=== PATIENT | male | born 1950 | race Caucasian/White ===

== ENCOUNTER 2017-11-10 21:11 | Emergency (ER) | payer OTHER ==
[2017-11-10] MEDS ORDERED: TETANUS & DIPHTHERIA TOX,ADULT 0.5 ML VIAL ONE (22:04)
[2017-11-10] MEDS ORDERED: HYDROCODONE/APAP 5/325 MG TAB ONE (22:29)
--- NOTE | 2017-11-10 23:11 | ER ---
Nurse's Notes [facility] Name: Anjel Leone Age: 67 yrs Sex: Male : 1950 Arrival Date: 11/10/2017 Time: 21:14 Bed 4 Private MD: Lashaun Burger F Diagnosis: Puncture wound without foreign body, right foot Presentation: 11/10 21:45 Presenting complaint: Patient states: stepped on alejandra screw yesterday about noon, tl3 started swelling last night. Transition of care: patient was not received from another setting of care. Onset of symptoms was November 10, 2017. Risk Assessment: Do you want to hurt yourself or someone else? Patient reports no desire to harm self or others. Initial Sepsis Screen: Does the patient meet any 2 criteria? No. Patient's initial sepsis screen is negative. Does the patient have a suspected source of infection? No. Patient's initial sepsis screen is negative. Care prior to arrival: None. 21:45 Method Of Arrival: Ambulatory tl3 21:45 Acuity: MCKAY 4 tl3 Triage Assessment: 21:49 General: Appears uncomfortable, Behavior is cooperative, appropriate for age. tl3 23:39 Pain: Complains of pain in left foot and left leg. ao Historical: - Allergies: 21:49 No Known Allergies; tl3 - Home Meds: 21:49 metoprolol succinate 50 mg oral Tb24 [Active]; amoxicillin 500 mg Oral cap 3 times per tl3 day [Active]; amlodipine 5 mg tab 1 tab once daily [Active]; Pravachol 40 mg Oral tab 1 tab once daily [Active]; hydrocodone-acetaminophen 7.5-325 mg Oral tab every 4-6 hours [Active]; - Immunization history:: Adult Immunizations up to date. - Social history:: Smoking status: Patient/guardian denies using tobacco, never smoked. - Ebola Screening: : Patient denies travel to an Ebola-affected area in the 21 days before illness onset. Screenin:37 Abuse screen: Denies threats or abuse. Denies injuries from another. Nutritional rv screening: No deficits noted. Tuberculosis screening: No symptoms or risk factors identified. Fall Risk None identified. Assessment: 22:45 General: Appears in no apparent distress. uncomfortable, Behavior is calm, cooperative, ao appropriate for age. Pain: Complains of pain in left foot. Neuro: Level of Consciousness is awake, alert, obeys commands, Oriented to person, place, time, situation, Appropriate for age Moves all extremities. Speech is normal, Facial symmetry appears normal. Cardiovascular: Capillary refill < 3 seconds Patient's skin is warm and dry. Respiratory: Airway is patent Respiratory effort is even, unlabored, Respiratory pattern is regular. GI: Abdomen is non-distended. : No signs and/or symptoms were reported regarding the genitourinary system. EENT: No signs and/or symptoms were reported regarding the EENT system. Derm: Skin is clammy, Skin is pink, warm \T\ dry. Skin temperature is warm Wound noted left foot Wound is Clean. Musculoskeletal: Range of motion: intact in all extremities. Vital Signs: 21:49 BP 121 / 76; Pulse 59; Resp 18; Temp 98.4; Pulse Ox 96% ; Weight 110.68 kg; Height 6 tl3 ft. (182.88 cm); 21:49 Body Mass Index 33.09 (110.68 kg, 182.88 cm) tl3 ED Course: 21:14 Patient arrived in ED. es 21:15 Lashaun Burger MD is Private Physician. es 21:45 Nathaniel Mcclain, DONNA is Primary Nurse. ao 21:46 Triage completed. tl3 21:49 Ishmael Ash NP is PHCP. pm1 21:49 Emery Andrade MD is Attending Physician. pm1 21:49 Arm band placed on right wrist. tl3 22:14 X-ray completed. Portable x-ray completed in exam room. Patient tolerated procedure mh1 well. 22:16 Foot Right 3 View XRAY In Process Unspecified. EDMS 23:08 Lashaun Burger MD is Referral Physician. pm1 23:38 No provider procedures requiring assistance completed. Patient did not have IV access ao during this emergency room visit. 23:39 Patient has correct armband on for positive identification. Pulse ox on. NIBP on. ao Administered Medications: 22:05 Drug: Tetanus-Diphtheria Toxoid Adult 0.5 ml {Nuisance Wildlife Specialist: WISETIVI. Exp: ao 02/08/2020. Lot #: [id number]. } Route: IM; Site: left deltoid; 23:37 Follow up: Response: No adverse reaction rv 22:30 Drug: [place] 5 mg-325 mg 1 tabs Route: PO; ao 23:37 Follow up: Response: No adverse reaction rv 23:36 Drug: Cipro 500 mg Route: PO; rv 23:37 Follow up: Response: Medication administered at discharge. rv Outcome: 23:10 Discharge ordered by . pm1 23:39 Discharged to home ambulatory. ao 23:39 Condition: good 23:39 Discharge instructions given to patient, Instructed on discharge instructions, follow up and referral plans. Demonstrated understanding of instructions, follow-up care, medications, Prescriptions given X 2. 23:42 Patient left the ED. ao Signatures: Dispatcher [employer] Lisa Lofton Martha 1 Nathaniel Mcclain, RN RN ao Ishmael Ash, SUE SHIPS OR BARGES LOADER pm1 Carmen Hines RN RN tl3 Edison Byers RN RN rv
--- NOTE | 2017-11-10 23:11 | EDPHYS ---
Physician Documentation [facility] Name: Anjel Leone Age: 67 yrs Sex: Male : 1950 Arrival Date: 11/10/2017 Time: 21:14 Bed 4 Private MD: Lashaun Burger F ED Physician Emery Andrade HPI: 11/11 00:00 This 67 yrs old Male presents to ER via Ambulatory with complaints of NAIL pm1 PUNCTURE RT FOOT. 00:00 Onset: The symptoms/episode began/occurred just prior to arrival. Patient wearing pm1 tennis shoes and accidentally stepped on board that had a nail/screw sticking out. Puncture wound to his right foot. 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 Historical: - Allergies: 11/10 21:49 No Known Allergies; tl3 - Home Meds: 21:49 metoprolol succinate 50 mg oral Tb24 [Active]; amoxicillin 500 mg Oral cap 3 times per tl3 day [Active]; amlodipine 5 mg tab 1 tab once daily [Active]; Pravachol 40 mg Oral tab 1 tab once daily [Active]; hydrocodone-acetaminophen 7.5-325 mg Oral tab every 4-6 hours [Active]; - Immunization history:: Adult Immunizations up to date. - Social history:: Smoking status: Patient/guardian denies using tobacco, never smoked. - Ebola Screening: : Patient denies travel to an Ebola-affected area in the 21 days before illness onset. ROS: 11/11 00:00 Constitutional: Negative for fever, chills, and weight loss, Eyes: Negative for injury, pm1 pain, redness, and discharge, ENT: Negative for injury, pain, and discharge, Neck: Negative for injury, pain, and swelling, Cardiovascular: Negative for chest pain, palpitations, and edema, Respiratory: Negative for shortness of breath, cough, wheezing, and pleuritic chest pain, Abdomen/GI: Negative for abdominal pain, nausea, vomiting, diarrhea, and constipation, Back: Negative for injury and pain, MS/Extremity: Negative for injury and deformity. Skin: Positive for puncture, of the ball of right foot. Exam: 00:00 Constitutional: This is a well developed, well nourished patient who is awake, alert, pm1 and in no acute distress. Head/Face: Normocephalic, atraumatic. Chest/axilla: Normal chest wall appearance and motion. Nontender with no deformity. No lesions are appreciated. Cardiovascular: Regular rate and rhythm with a normal S1 and S2. No gallops, murmurs, or rubs. Normal PMI, no JVD. No pulse deficits. Respiratory: Lungs have equal breath sounds bilaterally, clear to auscultation and percussion. No rales, rhonchi or wheezes noted. No increased work of breathing, no retractions or nasal flaring. Back: No spinal tenderness. No costovertebral tenderness. Full range of motion. 00:00 Skin: Appearance: normal except for affected area, injury, puncture(s), of the ball of right foot. Vital Signs: 11/10 21:49 BP 121 / 76; Pulse 59; Resp 18; Temp 98.4; Pulse Ox 96% ; Weight 110.68 kg; Height 6 tl3 ft. (182.88 cm); 21:49 Body Mass Index 33.09 (110.68 kg, 182.88 cm) tl3 MDM: 22:01 Patient medically screened. pm1 23:08 Data reviewed: vital signs. Data interpreted: Pulse oximetry: on room air is 96 %. pm1 Interpretation: normal. Counseling: I had a detailed discussion with the patient and/or guardian regarding: the historical points, exam findings, and any diagnostic results supporting the discharge/admit diagnosis, radiology results, the need for outpatient follow up, to return to the emergency department if symptoms worsen or persist or if there are any questions or concerns that arise at home. 11/11 00:00 Special discussion: I discussed in detail with the patient the higher chance of wound pm1 infection based on his presenting history. 11/10 21:51 Order name: Foot Right 3 View XRAY bp Administered Medications: 11/10 22:05 Drug: Tetanus-Diphtheria Toxoid Adult 0.5 ml {Office Machine Service Supervisor: Gamida Cell. Exp: ao 02/08/2020. Lot #: [id number]. } Route: IM; Site: left deltoid; 23:37 Follow up: Response: No adverse reaction rv 22:30 Drug: [place] 5 mg-325 mg 1 tabs Route: PO; ao 23:37 Follow up: Response: No adverse reaction rv 23:36 Drug: Cipro 500 mg Route: PO; rv 23:37 Follow up: Response: Medication administered at discharge. rv Disposition: 11/11 04:33 Co-signature as Attending Physician, Emery Andrade MD I agree with the assessment and tw4 plan of care. Disposition: 11/10/17 23:10 Discharged to Home. Impression: Puncture wound without foreign body, right foot. - Condition is Stable. - Discharge Instructions: Puncture Wound. - Prescriptions for Tylenol- Codeine #3 300-30 mg Oral Tablet - take 2 tablets by ORAL route every 6 hours As needed; 20 tablet. Cipro 500 mg Oral Tablet - take 1 tablet by ORAL route every 12 hours for 7 days; 14 tablet. - Medication Reconciliation Form, Thank You Letter, Antibiotic Education, Prescription Opioid Use form. - Follow up: Emergency Department; When: As needed; Reason: Worsening of condition. Follow up: Lashaun Burger MD; When: 2 - 3 days; Reason: Recheck today's complaints, Continuance of care, Re-evaluation by your physician. - Problem is new. - Symptoms have improved. Signatures: Dispatcher [employer] EDNathaniel Bain, RN RN ao Ishmael Ash, SUE WATER TREATMENT TECHNICIAN pm1 Adam Gonzales RN RN bp Emery Andrade MD MD tw4 Carmen Hines RN RN tl3 Edison Byers RN RN rv Corrections: (The following items were deleted from the chart) 11/10 23:42 23:10 11/10/2017 23:10 Discharged to Home. Impression: Puncture wound without foreign ao body, right foot. Condition is Stable. Forms are Medication Reconciliation Form, Thank You Letter, Antibiotic Education, Prescription Opioid Use. Follow up: Emergency Department; When: As needed; Reason: Worsening of condition. Follow up: Lashaun Burger; When: 2 - 3 days; Reason: Recheck today's complaints, Continuance of care, Re-evaluation by your physician. Problem is new. Symptoms have improved. pm1
[2017-11-10] MEDS ORDERED: CIPROFLOXACIN HCL 500 MG TAB ONE (23:30)
--- NOTE | 2017-11-11 10:32 | RAD REPORT ---
EXAM DESCRIPTION: RAD - Foot Right 3 View - 11/10/2017 10:19 pm CLINICAL HISTORY: Right foot pain status post injury FINDINGS: No fracture or dislocation is seen. Diffuse edema is present within the subcutaneous tissu es. No bony destructive lesion is noted
== END 2017-11-10 23:42 | disposition home or self-care (01) ==
LOC: ER 21:11
DX: S91.331A Puncture wound without foreign body, right foot, initial encounter (principal); W22.8XXA Striking against or struck by other objects, initial encounter; Y93.9 Activity, unspecified; Y92.019 Unspecified place in single-family (private) house as the place of occurrence of the external cause; Z23 Encounter for immunization
CPT/HCPCS: 90714; 99284

== ENCOUNTER 2021-07-15 14:20 | Inpatient (IN) | payer OTHER ==
--- OUTSIDE RECORDS SUMMARY | 2021-07-15 14:23 | XMS REPORT | Continuity of Care Document ---
:1950 Author Organization [facility] t Address [address] [place] [address] Care Team Providers Name Role Phone XI Attending Clinician Unavailable IMELDA Attending Clinician Unavailable Problems This patient has no known problems. Allergies, Adverse Reactions, Alerts This patient has no known allergies or adverse reactions. Medications This patient has no known medications. Procedures This patient has no known procedures. Encounters Start End Encounter Admission Attending Care Care Encounter Source Date/Time Date/Time Type Type Clinicians Facility Department ID 2021-07-04 2021-07-04 Outpatient MARTA LAYNE [facility] [id number] [place] 00:00:00 00:00:[address] 2021-07-04 2021-07-04 Outpatient MARTA LAYNE [facility] [id number] [place] 00:00:00 00:00:[address] 2021-06-29 2021-06-29 Outpatient IMELDAON [facility] [id number] [place] 00:00:00 00:00:00 [facility] [address] Results This patient has no known results.
[2021-07-15] MEDS ORDERED: IBUPROFEN 400 MG TAB ONE (14:43)
--- NOTE | 2021-07-15 15:43 | RAD REPORT ---
EXAM DESCRIPTION: RAD - Chest Single View - 07/15/2021 3:33 pm CLINICAL HISTORY: Congestion;Cough Chest pain. COMPARISON: Chest Single View dated 11/04/2015 FINDINGS: Portable technique limits examination quality. Interstitial markings are slightly prominent suggesting a mild viral infection or bronchitis. The hea rt is normal in size. No displaced fractures.
[2021-07-15 15:46] LABS: Absolute Lymphocytes (CBC) 0.3 K/uL (0.7-4.9); Hematocrit 28.6 % (39.6-49.0); Lymphocytes % 5.5 % (15.3-44.8); RBC Red Blood Cell Count 2.99 M/uL (4.33-5.43)
[2021-07-15 15:52] LABS: Protime INR 1.15
[2021-07-15 16:19] LABS: Bilirubin Direct 0.2 mg/dL (0-0.2); Bilirubin Total 0.5 mg/dL (0.2-1.0); CKMB Creatine Kinase MB 5.2 ng/mL (1.0-3.6); Potassium 4.7 mmol/L (3.5-5.1); Protein, Total 7.3 g/dL (6.4-8.2); Troponin High Sensitivity 2219.9 pg/mL (<58.9)
[2021-07-15] MEDS ORDERED: ACETAMINOPHEN 500 MG TAB ONE (16:23)
[2021-07-15 17:50] LABS: Urine Blood Negative (Negative); Urine Glucose Negative (Negative); Urine Protein 2+ (Negative); Urine pH 5.5 (5.0-7.0)
[2021-07-15 18:14] LABS: SARS-COV-2 RT PCR NEGATIVE (NEGATIVE)
[2021-07-15 18:30] LABS: Urine Bacteria <20 /HPF (NONE SEEN); Urine RBC NONE SEEN /HPF (NONE SEEN)
--- NOTE | 2021-07-15 19:03 | EDPHYS ---
Physician Documentation [facility] Name: Anjel Leone Age: 71 yrs Sex: Male : 1950 Arrival Date: 07/15/2021 Time: 14:22 Bed 4 Private MD: Lashaun Burger F ED Physician Elia Keyes HPI: 07/15 19:03 This 71 yrs old Male presents to ER via Ambulatory with complaints of Fever, kdr Nausea/Vomiting, Shortness Of Breath. 19:03 The patient reports fever, that was measured at 102 degrees Fahrenheit. Onset: The kdr symptoms/episode began/occurred 2 day(s) ago, The patient has had intermittent fevers for the past several days. Severity of symptoms: At their worst the symptoms were mild moderate just prior to arrival, in the emergency department the symptoms have improved Patient spiked a fever again in the ED. The patient has not experienced similar symptoms in the past. The patient is being followed by a lens engraver in [place] who is planning to put in a AV fistula to begin dialysis in the next few weeks. Historical: - Allergies: 14:34 No Known Allergies; jl7 - Home Meds: 14:35 pravastatin 40 mg oral tab 1 tab once daily [Active]; metoprolol succinate 50 mg Oral jl7 Tb24 [Active]; hydralazine 50 mg Oral tab [Active]; amlodipine 5 mg tab 1 tab once daily [Active]; - PMHx: 14:34 Hypertensive disorder; GERD; Hypercholesterolemia; jl7 - Immunization history:: Client reports receiving the 2nd dose of the Covid vaccine, Moderna. - Social history:: Smoking status: Patient denies any tobacco usage or history of. ROS: 19:05 Constitutional: Negative for fever, chills, and weight loss, Eyes: Negative for injury, kdr pain, redness, and discharge, Neck: Negative for injury, pain, and swelling, Cardiovascular: Negative for chest pain, palpitations, and edema, Back: Negative for injury and pain, : Negative for injury, bleeding, discharge, and swelling, MS/Extremity: Negative for injury and deformity, Skin: Negative for injury, rash, and discoloration, Neuro: Negative for headache, weakness, numbness, tingling, and seizure activity. Psych: Negative for depression, anxiety, suicide ideation, homicidal ideation, and hallucinations, Allergy/Immunology: Negative for hives, rash, and allergies, Endocrine: Negative for neck swelling, polydipsia, polyuria, polyphagia, and marked weight changes, Hematologic/Lymphatic: Negative for swollen nodes, abnormal bleeding, and unusual bruising. 19:05 Respiratory: Positive for dyspnea on exertion, shortness of breath, at rest. Negative for hemoptysis, orthopnea, sputum production. Exam: 19:07 Constitutional: This is a well developed, well nourished patient who is awake, alert, kdr and in no acute distress. Head/Face: Normocephalic, atraumatic. Eyes: Pupils equal round and reactive to light, extra-ocular motions intact. Lids and lashes normal. Conjunctiva and sclera are non-icteric and not injected. Cornea within normal limits. Periorbital areas with no swelling, redness, or edema. Neck: Trachea midline, no thyromegaly or masses palpated, and no cervical lymphadenopathy. Supple, full range of motion without nuchal rigidity, or vertebral point tenderness. No Meningismus. Chest/axilla: Normal chest wall appearance and motion. Nontender with no deformity. No lesions are appreciated. Cardiovascular: Regular rate and rhythm with a normal S1 and S2. No gallops, murmurs, or rubs. Normal PMI, no JVD. No pulse deficits. Abdomen/GI: Soft, non-tender, with normal bowel sounds. No distension or tympany. No guarding or rebound. No evidence of tenderness throughout. Back: No spinal tenderness. No costovertebral tenderness. Full range of motion. Skin: Warm, dry with normal turgor. Normal color with no rashes, no lesions, and no evidence of cellulitis. MS/ Extremity: Pulses equal, no cyanosis. Neurovascular intact. Full, normal range of motion. Neuro: Awake and alert, GCS 15, oriented to person, place, time, and situation. Cranial nerves II-XII grossly intact. Motor strength 5/5 in all extremities. Sensory grossly intact. Cerebellar exam normal. Normal gait. Psych: Awake, alert, with orientation to person, place and time. Behavior, mood, and affect are within normal limits. 19:07 Respiratory: the patient does not display signs of respiratory distress, Respirations: normal, Breath sounds: rales, that are mild, are located in both bases, are heard diffusely. Vital Signs: 14:31 BP 147 / 80; Pulse 106; Resp 23 S; Temp 100.7(O); Pulse Ox 92% on R/A; Weight 108.86 jl7 kg; Height 6 ft. 0 in. (182.88 cm); Pain 0/10; 16:05 BP 115 / 70; Pulse 91; Resp 20; Temp 101.1(O); Pulse Ox 94% on R/A; ph 17:06 BP 111 / 74; Pulse 84; Resp 20; Pulse Ox 87% on BiPAP; ph 17:42 Temp 99.1(O); ph 18:39 BP 110 / 71; Pulse 79; Resp 18; Pulse Ox 97% on R/A; ph 19:31 BP 114 / 74; Pulse 81; Resp 18; Pulse Ox 97% ; tw5 19:31 Temp 98.8(O); tw5 14:31 Body Mass Index 32.55 (108.86 kg, 182.88 cm) jl7 MDM: 19:02 Patient medically screened. kdr 19:07 Data reviewed: vital signs, nurses notes, lab test result(s), radiologic studies. kdr Counseling: I had a detailed discussion with the patient and/or guardian regarding: the historical points, exam findings, and any diagnostic results supporting the discharge/admit diagnosis, lab results, radiology results, the need for further work-up and treatment in the hospital. 07/15 15:10 Order name: Amylase, Serum kdr 07/15 15:10 Order name: Basic Metabolic Panel kdr 07/15 15:10 Order name: Blood Culture Adult (2) kdr 07/15 15:10 Order name: CBC with Diff kdr 07/15 15:10 Order name: CPK kdr 07/15 15:10 Order name: Ckmb; Complete Time: 17:03 kdr 07/15 15:10 Order name: LFT's; Complete Time: 17:03 kdr 07/15 15:10 Order name: Lactate; Complete Time: 17:03 kdr 07/15 15:10 Order name: Lipase; Complete Time: 17:03 kdr 07/15 15:10 Order name: Procalcitonin; Complete Time: 17:03 kdr 07/15 15:10 Order name: Protime (+inr); Complete Time: 16:00 kdr 07/15 15:10 Order name: Ptt, Activated; Complete Time: 16:00 kdr 07/15 15:10 Order name: Troponin HS; Complete Time: 17:03 kdr 07/15 15:10 Order name: Urine Microscopic Only; Complete Time: 18:57 kdr 07/15 15:11 Order name: Amylase; Complete Time: 17:03 EDMS 07/15 15:11 Order name: Basic Metabolic Panel; Complete Time: 17:03 EDMS 07/15 15:11 Order name: Blood Culture EDMS 07/15 15:11 Order name: CBC with Automated Diff; Complete Time: 20:09 EDMS 07/15 15:11 Order name: Creatine Phosphokinase; Complete Time: 17:03 EDMS 07/15 16:02 Order name: COVID-19/FLU A+B (Document "Date of Onset" if Symptomatic); Complete Time: ph 18:16 07/15 17:49 Order name: Urine Dipstick-Ancillary; Complete Time: 18:12 EDMS 07/15 19:46 Order name: CBC Smear Scan; Complete Time: 20:09 EDMS 07/15 23:33 Order name: Troponin High Sensitivity EDMS 07/15 23:41 Order name: T4 Free EDMS 07/15 23:41 Order name: Thyroid Stimulating Hormone EDMS 07/16 04:19 Order name: CBC with Automated Diff EDMS 07/16 05:27 Order name: Comprehensive Metabolic Panel EDMS 07/16 05:27 Order name: Troponin High Sensitivity EDMS 07/15 15:10 Order name: Chest Single View XRAY; Complete Time: 16:00 [facility] 07/15 15:10 Order name: Accucheck; Complete Time: 16:16 kdr 07/15 15:10 Order name: Cardiac monitoring; Complete Time: 16:16 kdr 07/15 15:10 Order name: EKG - Nurse/Tech; Complete Time: 18:39 kdr 07/15 15:10 Order name: IV Saline Lock - Large Bore; Complete Time: 16:16 kdr 07/15 15:10 Order name: Labs collected and sent; Complete Time: 16:16 kdr 07/15 15:10 Order name: O2 Per Protocol; Complete Time: 16:16 kdr 07/15 15:10 Order name: O2 Sat Monitoring; Complete Time: 16:16 kdr 07/15 15:10 Order name: Urine Dipstick-Ancillary (obtain specimen); Complete Time: 18:11 kdr 07/15 19:32 Order name: CT Chest Abdomen Pelvis W/O Contrast; Complete Time: 20:09 la1 07/16 05:27 Order name: Lipid Profile EDMS Administered Medications: 14:43 Drug: Motrin (ibuprofen) 800 mg Route: PO; jl7 16:13 Follow up: Response: No adverse reaction ll1 16:20 Drug: Tylenol 1000 mg Route: PO; ph 18:38 Follow up: Response: No adverse reaction; Temperature is decreased ph 18:39 Not Given (Physician Discretion): NS 0.9% (30 ml/kg) 30 ml/kg IV at bolus once; Sepsis ph Protocol 19:39 Drug: Aspirin Chewable Tablet 324 mg Route: PO; tw5 Disposition Summary: 07/15/21 19:03 Hospitalization Ordered Hospitalization Status: Inpatient Admission kdr Condition: Fair kdr Problem: new kdr Symptoms: have improved kdr Bed/Room Type: Standard kdr Provider: Prince Sue(07/15/21 19:08) kdr Location: Telemetry/MedSurg (Inpatient)(07/16/21 13:46) ja1 Room Assignment: 223(07/16/21 13:46) ja Diagnosis - Fever, unspecified kdr - Viral infection, unspecified kdr - Nausea with vomiting, unspecified kdr - End stage renal disease kdr - Subsequent non-ST elevation (NSTEMI) myocardial infarction kdr Forms: - Medication Reconciliation Form kdr - SBAR form kdr Signatures: Dispatcher [employer] EDMS Elia Keyes MD MD kdr Kenny Paris, CONCAVER-C CONCAVER-Cla1 Elle Urias RN RN Ada Olivier, RN RN Mp Giles RN RN jl7 Prem Corona RN RN ja1 Govind Rodriguez, RN RN Micaela Bishop tw5 Corrections: (The following items were deleted from the chart) 19:08 19:03 Lashaun Burger kdr kdr 20:18 19:03 Telemetry/MedSurg (Inpatient) kdr cg 20:18 19:03 kdr 07/16 13:46 [id number] 20:18 [facility] ER HOLD cg ja 07/16 13:46 04 20:18 ERHOLD- cg ja1
--- NOTE | 2021-07-15 19:03 | ER ---
Nurse's Notes [facility] Name: Anjel Leone Age: 71 yrs Sex: Male : 1950 Arrival Date: 07/15/2021 Time: 14:22 Bed 4 Private MD: Lashaun Burger F Diagnosis: Fever, unspecified;Viral infection, unspecified;Nausea with vomiting, unspecified;End stage renal disease;Subsequent non-ST elevation (NSTEMI) myocardial infarction Presentation: 07/15 14:31 Chief complaint: Patient states: Fever, N/V x 2 days, denies cough, denies urinary jl7 symptoms, denies abdominal pain, no new wounds. Coronavirus screen: fever, nausea, vomiting. Client presents with at least one sign or symptom that may indicate coronavirus-19. Standard/surgical mask placed on the client. Provider contacted for isolation considerations. Ebola Screen: No symptoms or risks identified at this time. Initial Sepsis Screen: Does the patient meet any 2 criteria? RR > 20 per min. HR > 90 bpm. Yes Does the patient have a suspected source of infection? No. Patient's initial sepsis screen is negative. Risk Assessment: Do you want to hurt yourself or someone else? Patient reports no desire to harm self or others. Onset of symptoms was July 13, 2021. Care prior to arrival: None. 14:31 Method Of Arrival: Ambulatory 7 14:31 Acuity: MCKAY 3 jl7 Triage Assessment: 14:35 General: Appears in no apparent distress. uncomfortable, Behavior is calm, cooperative, jl7 appropriate for age. Pain: Denies pain. GI: Reports nausea. Historical: - Allergies: 14:34 No Known Allergies; jl7 - Home Meds: 14:35 pravastatin 40 mg oral tab 1 tab once daily [Active]; metoprolol succinate 50 mg Oral jl7 Tb24 [Active]; hydralazine 50 mg Oral tab [Active]; amlodipine 5 mg tab 1 tab once daily [Active]; - PMHx: 14:34 Hypertensive disorder; GERD; Hypercholesterolemia; jl7 - Immunization history:: Client reports receiving the 2nd dose of the Covid vaccine, Moderna. - Social history:: Smoking status: Patient denies any tobacco usage or history of. Screenin:49 Abuse screen: Denies threats or abuse. Denies injuries from another. Nutritional ph screening: No deficits noted. Tuberculosis screening: No symptoms or risk factors identified. Fall Risk None identified. Assessment: 15:55 General: Appears in no apparent distress. comfortable, well groomed, Behavior is calm, ph cooperative, appropriate for age. Pain: Denies pain. Neuro: Level of Consciousness is awake, alert, obeys commands, Oriented to person, place, time, situation, Reports weakness. Cardiovascular: Reports shortness of breath, Capillary refill < 3 seconds in bilateral fingers Patient's skin is warm and dry. Respiratory: Reports shortness of breath on exertion Airway is patent Respiratory effort is even, unlabored, Respiratory pattern is regular, symmetrical. GI: Abdomen is round non-distended, Reports nausea, vomiting, Patient currently denies abdominal pain. : No signs and/or symptoms were reported regarding the genitourinary system. Derm: Skin is intact, Skin is pink, warm \T\ dry. Musculoskeletal: Circulation, motion, and sensation intact. Range of motion: intact in all extremities. 17:06 Reassessment: Patient appears in no apparent distress at this time. Patient and/or ph family updated on plan of care and expected duration. Pain level reassessed. Patient is alert, oriented x 3, equal unlabored respirations, skin warm/dry/pink. 17:42 Reassessment: Patient appears in no apparent distress at this time. Patient and/or ph family updated on plan of care and expected duration. Pain level reassessed. Patient is alert, oriented x 3, equal unlabored respirations, skin warm/dry/pink. Pt given urinal for urine sample. 18:39 Reassessment: Patient appears in no apparent distress at this time. Patient and/or ph family updated on plan of care and expected duration. Pain level reassessed. Patient is alert, oriented x 3, equal unlabored respirations, skin warm/dry/pink. 19:31 General: Appears in no apparent distress. comfortable, Behavior is calm, cooperative, tw5 appropriate for age. Pain: Denies pain. Vital Signs: 14:31 BP 147 / 80; Pulse 106; Resp 23 S; Temp 100.7(O); Pulse Ox 92% on R/A; Weight 108.86 jl7 kg; Height 6 ft. 0 in. (182.88 cm); Pain 0/10; 16:05 BP 115 / 70; Pulse 91; Resp 20; Temp 101.1(O); Pulse Ox 94% on R/A; ph 17:06 BP 111 / 74; Pulse 84; Resp 20; Pulse Ox 87% on BiPAP; ph 17:42 Temp 99.1(O); ph 18:39 BP 110 / 71; Pulse 79; Resp 18; Pulse Ox 97% on R/A; ph 19:31 BP 114 / 74; Pulse 81; Resp 18; Pulse Ox 97% ; tw5 19:31 Temp 98.8(O); tw5 14:31 Body Mass Index 32.55 (108.86 kg, 182.88 cm) jl7 ED Course: 14:22 Patient arrived in ED. as 14:22 Lashaun Burger MD is Private Physician. as 14:34 Triage completed. jl7 14:35 Arm band placed on right wrist. jl7 14:40 Elle Urias, RN is Primary Nurse. ph 14:41 Patient placed in an exam room, on a stretcher. ll1 14:49 Patient has correct armband on for positive identification. Placed in gown. Bed in low ph position. Call light in reach. Side rails up X 1. Pulse ox on. NIBP on. 15:09 Elia Keyes MD is Attending Physician. kdr 15:30 Initial lab(s) drawn, by nm, sent to lab. Inserted saline lock: 20 gauge in right ph forearm, using aseptic technique. Blood collected. 15:38 Chest Single View XRAY In Process Unspecified. EDMS 17:43 No provider procedures requiring assistance completed. ph 18:58 Lashaun Burger MD is Hospitalizing Provider. kdr 19:08 Prince Rogers MD is Hospitalizing Provider. kdr 19:30 Amylase, Serum Sent. tw5 19:30 Basic Metabolic Panel Sent. tw5 19:30 Blood Culture Adult (2) Sent. tw5 19:30 CBC with Diff Sent. tw5 19:30 CPK Sent. tw5 19:31 campus monitor on. Door closed. Noise minimized. Moved to private room. Warm blanket tw5 given. Verbal reassurance given. 19:45 CT Chest Abdomen Pelvis W/O Contrast In Process Unspecified. EDMS 02/05 06:29 Primary Nurse role handed off by Elle Urias RN 07:00 Isaias Edmonds, RN is Primary Nurse. as6 Administered Medications: 07/15 14:43 Drug: Motrin (ibuprofen) 800 mg Route: PO; jl7 16:13 Follow up: Response: No adverse reaction ll1 16:20 Drug: Tylenol 1000 mg Route: PO; ph 18:38 Follow up: Response: No adverse reaction; Temperature is decreased ph 18:39 Not Given (Physician Discretion): NS 0.9% (30 ml/kg) 30 ml/kg IV at bolus once; Sepsis ph Protocol 19:39 Drug: Aspirin Chewable Tablet 324 mg Route: PO; tw5 Outcome: 19:03 Decision to Hospitalize by Provider. kdr 07/16 14:58 Admitted to Tele accompanied by tech, via wheelchair, Report called to 223 rn jh6 Condition: stable Instructed on follow up and referral plans. the need for admit. 15:00 Patient left the ED. jh6 Signatures: Dispatcher [employer] EDMS Elia Keyes MD MD [facility] Shannan Olsen as Elle Urias, RN RN ph Mp Gomez RN RN jl7 Melida Conklin Lynsay, RN RN ll1 Micaela East 5 Isaias Edmonds, RN RN as6 Yue Betancourt, RN RN jh6 Corrections: (The following items were deleted from the chart) 07/15 16:15 15:15 NS 0.9% (30 ml/kg) 30 ml/kg IV at bolus in right hand 1 [facility] 16:15 16:14 Response: No adverse reaction; IV Status: Completed infusion; IV Intake: 1100ml 1 1 16:54 16:53 BP 115 / 70; Pulse 91bpm; Resp 20bpm; Pulse Ox 94% RA; Temp 101.1F Oral; ph ph
[2021-07-15] MEDS ORDERED: ASPIRIN 81 MG CHEWABLE TABLET ONE (19:32)
[2021-07-15 19:45] LABS: Blood Morphology Comment NOT SEEN (NOT SEEN); Platelet Estimate ADEQ; White Blood Cell Scan OK (OK)
--- NOTE | 2021-07-15 19:57 | RAD REPORT ---
EXAM DESCRIPTION: CT - Chest Abd Pelvis Wo Con - 07/15/2021 7:45 pm CLINICAL HISTORY: Chest and abdomen pain. Fever, sob, cough, vomiting,nausea COMPARISON: No comparisons TECHNIQUE: A limited noncontrast study was performed. All CT scans are performed using dose optimization technique as appropriate and may include automated exposure control or mA/KV adjustment according to patient size. FINDINGS: Subtle ground-glass opacities are present the right lower lobe.No pleural or pericardial e ffusion.Small hiatal hernia noted. Mild fluid distention of the esophagus.No intrathoracic adenopathy . Several low-density liver lesions are likely cysts. Bilateral polycystic kidneys noted. The spleen, p ancreas, adrenal glands are within normal limits. No bowel obstruction, free air, free fluid or abscess. Normal appendix. Sigmoid diverticulosis coli i s present. Prominent stool is present throughout the colon. No pathologic lymphadenopathy in the abdo men or pelvis. Small fat containing umbilical hernia. No worrisome osseous finding. IMPRESSION: Polycystic kidney disease. Subtle groundglass opacity posterior right lower lobe could be mild infiltrate/infection. Prominent sigmoid diverticulosis coli without diverticulitis.
--- NOTE | 2021-07-15 20:17 | P.HP ---
Certification for Inpatient Patient admitted to: Inpatient With expected LOS: >2 Midnights Patient will require the following post-hospital care: None Practitioner: I am a practitioner with admitting privileges, knowledge of patient current condition, hospital course, and medical plan of care. Services: Services provided to patient in accordance with Admission requirements found in Title 42 Section 412.3 of the Code of Federal Regulations Patient History Date of Service: 07/15/21 Primary Care Provider: Dr. Burger- Covering for, should be back evening 07/16 Reason for admission: NSTEMI, fever History of Present Illness: 71-year-old male with history of hypertension, GERD, hyperlipidemia, ESRD, polycystic kidney disease presents emergency department for fever, cough, nausea, vomiting. Patient was evaluated in the emergency department labs were significant for creatinine 6.19 GFR 9 BUN 66 carbon oxide 15 high-sensitivity troponin 2219 procalcitonin 2.9 hemoglobin 9.3 medical 20.6 urinalysis negative for UTI chest x-ray with possible early viral pneumonia CT chest abdomen pelvis without contrast demonstrated polycystic kidney disease, subtle groundglass opacity posterior right lower lobe could be mild infiltrate/infection. Patient with normal white blood cell count, has a viral syndrome symptoms including nausea and vomiting, flu and Covid test are negative. Will admit for NSTEMI. Case was discussed with cardiology believes this is likely demand ischemia will trend at this time. Patient does have plan for initiation of renal replacement therapy is supposed to have a fistula placed with his nephrology Dr. Li on the of this month. No significant change in patient's renal function from labs obtained 2 weeks ago from his freelance web designer. Will admit for further evaluation and management. Allergies No Known Allergies Allergy (Unverified 11/05/15 01:02) - Past Medical/Surgical History -: ESRD -: Polycystic kidney disease -: Hypertension -: GERD -: Hyperlipidemia -: Diaphragmatic hernia repair Psychosocial/ Personal History: Patient lives at home with his - Family History Family History: Reviewed- Non-Contributory - Social History Smoking Status: Never smoker Alcohol use: No CD- Drugs: No Caffeine use: No Place of Residence: Home Review of Systems 10-point ROS is otherwise unremarkable General: Fever, Chills Respiratory: Cough, Shortness of Breath, SOB with Excertion Gastrointestinal: Nausea, Vomiting Physical Examination - Physical Exam General: Alert, In no apparent distress, Oriented x3 HEENT: Atraumatic, PERRLA, Mucous membr. moist/pink, EOMI, Sclerae nonicteric Neck: Supple, 2+ carotid pulse no bruit, No LAD, Without JVD or thyroid abnormality Respiratory: Clear to auscultation bilaterally, Normal air movement Cardiovascular: Regular rate/rhythm, Normal S1 S2, Edema (1+ nonpitting edema bilateral lower extremities) Capillary refill: <2 Seconds Gastrointestinal: Normal bowel sounds, No tenderness, No masses, No rebound, No guarding Musculoskeletal: No tenderness Integumentary: No rashes Neurological: Normal speech, Normal strength at 5/5 x4 extr, Normal tone, Normal affect - Studies Laboratory Data (last 24 hrs) 07/15/21 15:30: PT 13.2 H, INR 1.15, APTT 27.2 07/15/21 15:30: WBC 6.30, Hgb 9.3 L, Hct 28.6 L, Plt Count 216 07/15/21 15:30: Sodium 139, Potassium 4.7, BUN 66 H, Creatinine 6.19 H*, Glucose 126 H, Total Bilirubin 0.5, AST 29, ALT 31, Alkaline Phosphatase 145 H, Amylase 58, Lipase 199 Assessment and Plan - Plan Assessment: NSTEMI Fever/suspected viral syndrome ESRD 2/2 polycystic kidney disease Hypertension Hyperlipidemia Plan: NSTEMI: Patient with significant elevated troponin, discussed case with cardiology suspect demand ischemia/combination with ESRD and high-sensitivity troponin. Will trend troponin, monitor on telemetry. Patient denies any chest pain and is without significant ST changes on EKG. Fever/suspected viral syndrome: Vitals are count normal, patient with nausea/vomiting no abdominal tenderness CT demonstrates possible right lower lobe groundglass opacities chest x-ray suspect viral pneumonia. Will continue to monitor closely provide with incentive spirometry recheck CBC in the morning. Would often advise at this time. No signs of UTI or other explanation of fever. ESRD 2/2 polycystic kidney disease: Patient sees nephrology is scheduled to have fistula placed on the of this month. No significant change in renal function from previous labs. Will recheck in the morning to ensure there is not worsening. Otherwise can continue with outpatient care. Hypertension: Obtain and continue home medications as appropriate Hyperlipidemia: Obtain and continue medications as appropriate DVT PPX: Heparin Code status: Full Discharge Plan: Home Plan to discharge in: 48 Hours - Advance Directives Does patient have a Living Will: No Does patient have a Durable POA for Healthcare: No - Code Status/Comfort Care Code Status Assessed: Yes (Full code) Critical Care: No Time Spent Managing Pts Care (In Minutes): 55
[2021-07-15] MEDS ORDERED: SODIUM CHLORIDE 0.9% 10ML INJ IV PRN (22:06)
[2021-07-15] MEDS: HEPARIN 5000 UNIT/ML 1 ML VIAL SQ SCH (22:06)
[2021-07-15] MEDS ORDERED: ONDANSETRON 4 MG/2 ML VIAL IV PRN (22:06)
[2021-07-15] MEDS ORDERED: HEPARIN 5000 UNIT/ML 1 ML VIAL ONE (22:17)
[2021-07-15 22:34] VITALS: BMI 4589.0
[2021-07-15 23:41] LABS: Thyroid Stimulating Hormone 0.732 uIU/mL (0.360-3.740)
[2021-07-16 04:17] LABS: Absolute Lymphocytes (CBC) 0.8 K/uL (0.7-4.9); Hematocrit 27.5 % (39.6-49.0); Lymphocytes % 18.1 % (15.3-44.8); MPV 9.7 fL (7.6-11.3); RBC Red Blood Cell Count 2.87 M/uL (4.33-5.43)
[2021-07-16 05:19] LABS: Albumin 2.8 g/dL (3.4-5.0); Bilirubin Total 0.4 mg/dL (0.2-1.0); Potassium 4.9 mmol/L (3.5-5.1); Protein, Total 6.5 g/dL (6.4-8.2)
[2021-07-16 05:27] LABS: Troponin High Sensitivity 3018.2 pg/mL (<58.9)
[2021-07-16] MEDS: HEPARIN 5000 UNIT/ML 1 ML VIAL SQ SCH ×2 (09:00→21:00)
[2021-07-16] MEDS: PANTOPRAZOLE 40 MG INJ IVP SCH (09:00)
[2021-07-16] MEDS ORDERED: PANTOPRAZOLE 40 MG INJ ONE (09:23)
--- NOTE | 2021-07-16 14:12 | P.PN ---
Subjective Date of Service: 07/16/21 Primary Care Provider: Dr. Burger- Covering for, should be back evening 07/16 Chief Complaint: NSTEMI, fever Subjective: Improving Physical Examination - Vital Signs Temperature: 98.2 F Blood Pressure: 130/71 Pulse: 84 Respirations: 16 Pulse Ox (%): 100 - Physical Exam General: In no apparent distress, Cooperative HEENT: Atraumatic, Normocephalic Neck: Supple Respiratory: Clear to auscultation bilaterally, Normal air movement, Diminished Cardiovascular: No edema, Regular rate/rhythm, Normal S1 S2 Gastrointestinal: Soft and benign, Non-distended Neurological: Normal speech, Normal affect - Studies Laboratory Data (last 24 hrs) 07/15/21 15:30: PT 13.2 H, INR 1.15, APTT 27.2 07/15/21 15:30: WBC 6.30, Hgb 9.3 L, Hct 28.6 L, Plt Count 216 07/15/21 15:30: Sodium 139, Potassium 4.7, BUN 66 H, Creatinine 6.19 H*, Glucose 126 H, Total Bilirubin 0.5, AST 29, ALT 31, Alkaline Phosphatase 145 H, Amylase 58, Lipase 199 Assessment And Plan - Current Problems (Diagnosis) (1) Gastroenteritis Current Visit: Yes Status: Acute (2) Type 2 myocardial infarction Current Visit: Yes Status: Acute (3) Anemia of chronic disease Current Visit: Yes Status: Acute (4) CKD (chronic kidney disease), stage V Current Visit: Yes Status: Acute Physician Review Additional Text: Assessment Patient is a 71-year-old male with a past medical history of hypertension and advanced kidney disease. He presents to the ER accompanied by for evaluation of gastroenteritis. He has been having fever, nausea and vomiting. He was found to have a worsening kidney disease with creatinine of 6, and elevated troponin. 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 There is a plan to place a hemodialysis access He is also being considered for renal transplant Nephrology was consulted for his renal issues Cardiology consulted for his elevated troponin. This is most likely demand ischemia. Will most likely not treat aggressively Follow-up 2D echo DVT prophylaxis with heparin subcu Continue telemetry monitoring
[2021-07-16] MEDS ORDERED: INFLUENZA VACCINE (for 6+ mo) 0.5 ML DOSE IMVAC ONE (15:00)
[2021-07-16] MEDS ORDERED: EPOETIN ALFA 10,000 UNIT/ML VIAL IV ONE (15:00)
--- NOTE | 2021-07-16 20:19 | PN ---
Date of Progress Note: 07/16/2021 Reason For Consult: Chronic renal insufficiency. History Of Present Illness: Mr. Leone is a 71-year-old male with past medical history significant for history of polycystic kidney disease, hypertension, hyperlipidemia, GERD, who is being followed b y Dr. Ulloa for his kidney disease and was planned to get AV fistula placed and get started on dialysis. His creatinine was running in the 6 range most recently. Patient presented to [facility] because of fever, cough, nausea and vomiting. The patient had a CT scan of his chest and abdomen, which showed early viral pneumonia and polycystic kidney disease with subtle ground-glas s opacity in the posterior right lower lobe. He is currently being treated as a viral syndrome becau se his COVID and flu tests were negative and his troponin was noted to be elevated and he has also be en treated for NSTEMI. He is being evaluated by Dr. Gutierrez with Cardiology for further evaluation. Patient states that even prior to admission, he was having worsening shortness of breath, poor appet ite, fatigue, and weight loss and he was planned for an AV fistula placement and kidney transplant ev aluation. Past Medical History: Significant for history of ESRD, polycystic kidney disease, hypertension, GERD , hyperlipidemia, and history of hiatal hernia repair. Social History: He lives at home with his . No history of smoking, alcohol, or drug use reporte d. Family History: Noncontributory. Review of Systems: Positive for weakness, lethargy, shortness of breath, nausea, vomiting, abdominal discomfort, constip ation. Denies any headaches. Denies any blurry vision. Denies any chest pain at this time. All ot her review of systems are negative. Physical Examination: Vital Signs: At this time are showing temperature of 98.2, pulse rate of 84, respiratory rate of 16, and blood pressure 130/71, O2 saturation of 100% on room air. General: He appears in no acute distress. HEENT: Shows atraumatic head. Lungs: Auscultation of the lungs revealed bilateral equal air entry with diminished breath sounds at bases. Abdomen: Auscultation of the abdomen showed tenderness in the bilateral upper abdomen without any re bound or guarding, and abdomen seems slightly distended. Extremities: Showed no evidence of edema. Laboratory Data: At this time are showing sodium of 141, potassium of 4.9, chloride of 114, bicarb o f 17, BUN of 73, and creatinine of 6.9. His troponin was elevated to 2219 and continues to trend up. CBC showing stable hemoglobin of 8.7, hematocrit of 27.5, and platelet count of 196. Medications: Current medications and home medications have been reviewed in detail. Impression: 1.Chronic kidney disease stage 5. Patient has polycystic kidney disease, which has led to worsening renal function at this time. He also has significant uremic symptoms and has developed a non-ST-marlen vation myocardial infarction and may need further cardiac evaluation. Also, I have discussed with svetlana e patient and his in detail regarding the possibility of initiating dialysis and they are comple tely agreeable to initiate dialysis, they understand the risks and benefits. At this time, I will re quest Dr. Blsis to place a tunneled dialysis catheter for initiation of chronic dialysis and I will a lso send off for hepatitis panel in an attempt to get placement for dialysis at this time as an outpa tient once he is feeling better. 2.Fever and cough, likely secondary to viral syndrome. COVID test and flu test is negative. He is being treated conservatively and monitor closely. 3.Tek-VL-ypngfnknv myocardial infarction. The patient is currently being evaluated by the cardiolog ist. He may need a heart catheterization and we will go ahead and initiate dialysis so that he can g et his cardiac workup done. 4.Hypertension, stable. 5.Anemia secondary to chronic kidney disease, currently with hemoglobin of 8.6. We will continue to monitor and give him Epogen to maintain his hemoglobin level and prevent transfusion. 6.Metabolic acidosis, should correct once dialysis is initiated. VV/MODL Voice ID: [id number] Report ID: [id number]
--- NOTE | 2021-07-16 20:55 | CON ---
Date of Consultation: 07/16/2021 Reason For Consultation: Elevated troponin. History Of Present Illness: Mr. Leone is 71. He has a history of end-stage renal disease, but no hemodialysis yet. Planning hemodialysis soon and possible transplant. He sees Dr. Faith. He came in with fever secondary to gastroenteritis and was found to have elevated troponin and I was consult ed. He never had chest pain or any cardiac symptoms. Denied PND, orthopnea, pedal edema, palpitatio ns, or syncope. He is asymptomatic now. Past Medical History: Hypertension, renal disease, gastroesophageal reflux disease, and dyslipidemia . Allergies: NONE. Review of Systems: Negative. Social History: Negative. Family History: Negative. Medications: Include Toprol, Norvasc, Pravachol, aspirin, hydralazine, and Nexium. Physical Examination: General: Asymptomatic, no acute distress. Vital Signs: Stable, afebrile. HEENT: Negative. Neck: Supple. No bruit. Chest: Clear. Cardiac: Regular rhythm and rate with an S4 gallop. Abdomen: Benign. Extremities: No clubbing, cyanosis, or edema. Diagnostic Data: Creatinine was 6.19. Hemoglobin 8.7. Troponin is 3018. Chest x-ray showed possib le bilateral bronchitis. Impression And Plan: 1.End-stage renal disease, planning transplant and planning dialysis in the near future. 2.Elevated troponin secondary to demand ischemia from anemia or renal insufficiency and vital gastro enteritis. 3.Anemia. 4.Hypertension, well controlled. 5.Dyslipidemia, well controlled. 6.Gastroesophageal reflux disease. I am very comfortable with Mr. Leone going home. I will have him follow up with Dr. Faith in the near future. I think he needs to have an outpatient Lexiscan whenever it is okay with Dr. Vianney zelaya nd his renal physician in [place]. Case was discussed with Dr. Rogers. Continue present regimen. NB/MODL Voice ID: [id number] Report ID: [id number]
[2021-07-17 04:24] LABS: Absolute Lymphocytes (CBC) 1.6 K/uL (0.7-4.9); Hematocrit 26.2 % (39.6-49.0); Lymphocytes % 28.1 % (15.3-44.8); MPV 9.6 fL (7.6-11.3); RBC Red Blood Cell Count 2.76 M/uL (4.33-5.43)
[2021-07-17 04:51] LABS: Albumin 2.6 g/dL (3.4-5.0); Bilirubin Total 0.4 mg/dL (0.2-1.0); Potassium 4.3 mmol/L (3.5-5.1); Protein, Total 6.4 g/dL (6.4-8.2)
[2021-07-17] MEDS ORDERED: NA CHLORIDE 0.9% 500 ML ONE (08:13)
[2021-07-17] MEDS: HEPARIN 5000 UNIT/ML 1 ML VIAL SQ SCH ×2 (08:25→20:47)
[2021-07-17] MEDS: PANTOPRAZOLE 40 MG INJ IVP SCH (08:25)
[2021-07-17] MEDS ORDERED: CEFAZOLIN SODIUM 1 GM/VIAL ONE (08:38)
[2021-07-17] MEDS ORDERED: NS 0.9% VIAL 10 ML ONE (08:43)
[2021-07-17] MEDS ORDERED: HEPARIN 5000 UNIT/ML 1 ML VIAL ONE (08:45)
[2021-07-17] MEDS ORDERED: LIDOCAINE 1% 20 ML MDV ONE (08:46)
[2021-07-17] MEDS ORDERED: NA CHLORIDE 0.9% 100 ML IV ONE (08:46)
[2021-07-17] MEDS ORDERED: BUPIVACAINE 0.5% PF 10 ML VIAL ONE (08:55)
[2021-07-17] MEDS ORDERED: propofoL 200 MG/20 ML VIAL IV ONE (08:57)
[2021-07-17] MEDS ORDERED: LIDOCAINE 1% MPF 5 ML VIAL ONE (08:57)
[2021-07-17] MEDS: HEPARIN 5000 UNIT/ML 1 ML VIAL ONE ×2 (09:40→09:41)
--- NOTE | 2021-07-17 10:10 | P.OP ---
[employer]: NONE,NONE Preoperative diagnosis: ARF, ESRD Postoperative diagnosis: same Primary procedure: RIJ Tesio Secondary procedure: Fluoroscopy Anesthesia: General Estimated blood loss: min Specimen: none Findings: Normal Anatomy Complications: None Transferred to: Recovery Room Condition: Good
--- NOTE | 2021-07-17 10:10 | PREOPCON ---
Date of Consultation: 07/16/2021 Reason For Consultation: The patient needs dialysis. History Of Present Illness: The patient is a 71-year-old gentleman with multiple medical problems, lois cordero came in to the emergency room on the 4th with fever, cough, nausea, and vomiting. He does have a history of chronic renal disease, on admission it was found that it is worse and he is going to requi re dialysis. I was contacted by [facility] yesterday stating that the patient will start on dialysis. He has been scheduled for a fistula placement later this month. The patient is awake, alert. Compl aining of some viral syndrome symptoms. No sore throat, runny nose, cough, headaches, or dizziness. No chest pain currently and no fever or chills. Review of Systems: Otherwise unremarkable. Past Medical History: Chronic renal disease, polycystic kidney disease, hypertension, GERD, hyperlip idemia. Past Surgical History: Diaphragmatic hernia repair. Allergies: NONE. Social History: The patient does not smoke or drink alcohol. Family History: Noncontributory. Physical Examination: Vital Signs: Stable. He is afebrile. General: He is awake, alert, and oriented x3. Head and Neck: Cranial nerves 2 through 12 are grossly within normal limits. No neck masses. No JV D. Throat clear. Neck is supple. Chest: Clear. Heart: S1 and S2. Abdomen: Soft. Extremities: Neurovascularly intact. Neurologic: Nonfocal. Laboratory Data: White count is 5.6, H and H are 8.4 and 26.2, platelets are 192. INR is 1.15. Carmenza elliott shows CO2 of 16, BUN 75, creatinine of 6.5. Assessment: A 71-year-old gentleman with multiple medical problems with acute renal failure which is going to be end-stage renal disease in this case requiring urgent dialysis. Plan And Recommendations: We will go ahead and place a tunneled dialysis catheter on the right side as he is right-handed and he is scheduled for fistula in his left arm later this month. The patient understands the risks, benefits, and alternatives, and agrees to procedure. /MODL Voice ID: [id number] Report ID: [id number]
--- NOTE | 2021-07-17 10:14 | P.PN ---
Subjective Date of Service: 07/17/21 Primary Care Provider: Dr. Burger- Covering for, should be back evening 07/16 Chief Complaint: NSTEMI, fever Subjective: Improving (Fever of 100.8 degrees. He now has HD access.) Physical Examination - Vital Signs Temperature: 97.1 F Blood Pressure: 108/71 Pulse: 64 Respirations: 16 Pulse Ox (%): 97 - Physical Exam General: Alert, In no apparent distress, Cooperative HEENT: Atraumatic, Normocephalic Respiratory: Clear to auscultation bilaterally, Normal air movement Cardiovascular: No edema, Regular rate/rhythm, Normal S1 S2 Gastrointestinal: Soft and benign, Non-distended Musculoskeletal: No clubbing, No swelling, No contractures, No erythema Neurological: Normal speech, Normal affect Assessment And Plan - Current Problems (Diagnosis) (1) Gastroenteritis Current Visit: Yes Status: Acute (2) Type 2 myocardial infarction Current Visit: Yes Status: Acute (3) Anemia of chronic disease Current Visit: Yes Status: Acute (4) CKD (chronic kidney disease), stage V Current Visit: Yes Status: Acute Physician Review Additional Text: Assessment Patient is a 71-year-old male with a past medical history of hypertension and advanced kidney disease. He presents to the ER accompanied by for evaluation of gastroenteritis. He has been having fever, nausea and vomiting. He was found to have a worsening kidney disease with creatinine of 6, and elevated troponin. Gastroenteritis Type II UT CKD stage V Plan: He continues to have fever. No source identified. Follow-up blood cultures evaluation of fever HD access placed by Surgery. 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 He is also being considered for renal transplant Cardiology consulted for his elevated troponin. This is most likely demand ischemia. Will most likely not treat aggressively Follow-up 2D echo DVT prophylaxis with heparin subcu Continue telemetry monitoring
[2021-07-17] MEDS ORDERED: HYDROCODONE/APAP 7.5/325 MG TAB PO PRN (10:18)
--- NOTE | 2021-07-17 10:40 | OP ---
Date of Procedure: 07/17/2021 Surgeon: Jaime Bliss MD Dock Guard: None. Preoperative Diagnosis: Acute renal failure, end-stage renal disease. Postoperative Diagnosis: Acute renal failure, end-stage renal disease. Procedure Performed: Right IJ Tesio catheter and interpretation of intraoperative fluoroscopy. Estimated Blood Loss: Minimal. Specimen: None. Findings: Normal anatomy. Anesthesia: General. Complications: None. Disposition: The patient tolerated the procedure in stable condition and taken to Recovery in good g eneral condition. Procedure In Detail: The patient was brought to the OR and placed in supine position. General anest hesia begun. The patient was prepped and draped in the usual sterile fashion. Marcaine 0.5% was inf iltrated locally. An 18-gauge needle used to access the right IJ vein. Guidewire was passed. Posit ion was confirmed with fluoroscopy. Counterincision made on the right anterior chest. Tunneling dev ice was used to tunnel the catheter between the 2 wounds and then Seldinger technique used, vein dila darrin, and tip of the catheter placed in the SVC under fluoroscopy. Catheter flushed with heparin and packed with heparin. Good blood flow and a 3-0 chromic used to approximate subcutaneous tissue and 3 -0 nylon used to secure the tube to the chest wall. Sterile dressing applied. The patient was awakened and taken to Recovery in good general condition. Chest x-ray has been ordered. /MODL Voice ID: [id number] Report ID: [id number]
--- NOTE | 2021-07-17 10:41 | RAD REPORT ---
EXAM DESCRIPTION: RAD - Chest Single View - 07/17/2021 10:23 am CLINICAL HISTORY: s/p HD cath placement Chest pain. COMPARISON: Chest Single View dated 07/15/2021; Chest Single View dated 11/04/2015 FINDINGS: Portable technique limits examination quality. Right-sided venous catheter has tip in the SVC. No postprocedure pneumothorax. Mild interstitial opac ities likely represent mild pulmonary edema or volume overload. The heart is upper limit of normal in size.
--- NOTE | 2021-07-17 11:14 | RAD REPORT ---
EXAM DESCRIPTION: RAD - Fluoroscopy >1 Hr - 07/17/2021 10:24 am CLINICAL HISTORY: PORT A CATH COMPARISON: No comparisons FINDINGS: Fluoroscopy time 0.4 minutes. Four fluoroscopic images submitted.
--- NOTE | 2021-07-17 12:36 | PN ---
Date of Progress Note: 07/17/2021 Subjective: Patient was seen and examined at bedside. He feels better. He had a dialysis catheter placed and he feels okay except for some soreness. Physical Examination: Vital signs: Have been reviewed and are stable. General: He appears in no acute distress. Lungs: Clear to auscultation. Abdomen: Soft and nontender. Extremities: Showed no evidence of edema. Skin: He has a right-sided tunneled dialysis catheter in place, which seems to be stable and no sign s of infection was noted. Laboratory Data: At this time are showing creatinine of 6.5, BUN of 75. CBC showing stable hemoglob in, hematocrit, and platelet count. Current Medications: Have been reviewed. Impression: 1.Polycystic kidney disease progressing to end-stage renal disease. Patient will be initiated on di alysis today. After discussing with the patient, he is agreeable, we will restart 2 hours of dialysi s with a 3K 2.5 calcium bath and ultrafiltration of about 1 L as tolerated. 2.Anemia secondary to end-stage renal disease. Patient has gotten a dose of Retacrit yesterday. 3.Hypertension. We will restart metoprolol. Hold off on amlodipine. 4.Polycystic kidney disease, stable. 5.NSTEMI. Reviewed with Dr. Gutierrez. No plans for any acute intervention at this time. Continue t o monitor. 6.Hyperlipidemia. Resume statin at the time of discharge. Plan: Patient is overall doing okay at this time. Continue to monitor closely. Dialysis today. So matty work consult for placement at [facility] dialysis care and monitor. VV/JOBYL Voice ID: [id number] Report ID: [id number]
--- NOTE | 2021-07-17 16:39 | PN ---
Date of Progress Note: 07/17/2021 Subjective: Mr. Leone was really admitted with viral gastroenteritis, elevated troponin secondary to demand ischemia, renal failure. Last creatinine is 6.50. Last hemoglobin is 8.4. Last troponin is 3018. No cardiac complaints were ever elicited. His procalcitonin is 2.9. He is presently on an tibiotics, Epoetin, heparin, Protonix. At home he takes amlodipine, aspirin, Nexium, hydralazine, me toprolol and pravastatin. We will need continue that regimen as well. There is an echocardiogram pe nding for tomorrow. We will see what that shows. Nephrology is following. The patient is ready to have hemodialysis and possible transplant that is all being planned in [place]. I have refrained fro m doing a stress test on him because this will be done in [place] and/or by Dr. Faith in the [facility]. No plan for catheterization at this point. SON/CARMEN Voice ID: [id number] Report ID: [id number]
[2021-07-17] MEDS: METOPROLOL TAR 50 MG TAB PO SCH (20:45)
[2021-07-17] MEDS: HYDRALAZINE HCL 25 MG TABLET PO SCH (20:46)
[2021-07-18] MEDS: ACETAMINOPHEN 500 MG TAB PO PRN ×2 (01:45→16:38)
[2021-07-18] MEDS ORDERED: PANTOPRAZOLE 40MG TABLET PO SCH (06:30)
[2021-07-18] MEDS ORDERED: METOPROLOL XL 50 MG TAB PO SCH ×2 (09:00)
[2021-07-18] MEDS: AMLODIPINE 10 MG TAB PO SCH (09:00)
[2021-07-18] MEDS ORDERED: AMLODIPINE 5 MG TAB PO SCH (09:00)
[2021-07-18] MEDS ORDERED: PANTOPRAZOLE 40 MG INJ IVP SCH (09:00)
[2021-07-18] MEDS: ASCORBIC ACID 500 MG TABLET PO SCH (09:46)
[2021-07-18] MEDS: METOPROLOL TAR 50 MG TAB PO SCH ×2 (09:46→21:32)
[2021-07-18] MEDS: FE SULF/FA/VIT B COMP & C TAB PO SCH (09:47)
[2021-07-18] MEDS: PANTOPRAZOLE 40MG TABLET PO SCH (09:47)
[2021-07-18] MEDS: HYDRALAZINE HCL 25 MG TABLET PO SCH ×3 (09:47→21:00)
[2021-07-18] MEDS: ATORVASTATIN 10 MG TAB PO SCH (09:48)
[2021-07-18] MEDS: ASPIRIN 81 MG CHEWABLE TABLET PO SCH (09:48)
[2021-07-18] MEDS: HEPARIN 5000 UNIT/ML 1 ML VIAL SQ SCH ×2 (09:49→21:00)
[2021-07-18] MEDS ORDERED: POLYETHYL GLY 3350 17 GM/DOSE PO PRN (10:22)
--- NOTE | 2021-07-18 10:22 | P.PN ---
Date of Service: 07/18/21 Vital Signs Temp Pulse Resp BP Pulse Ox 99.1 F 95 H 16 117/63 91 07/18/21 08:00 07/18/21 09:46 07/18/21 08:00 07/18/21 09:46 07/18/21 08:00 Medications Acetaminophen (Acetaminophen 500 Mg Tab) 500 mg PO Q4HP PRN PRN Reason: TEMP > 100' F Last Admin: 07/18/21 01:45 Dose: 500 mg Documented by: Hydrocodone Bitart/Acetaminophen (Hydrocodone/Apap 7.5/325 Mg Tab) 1 tab PO Q6H PRN PRN Reason: Pain scale 5-7 (Moderate) Last Admin: 07/17/21 20:45 Dose: 1 tab Documented by: Amlodipine Besylate (Amlodipine 10 Mg Tab) 10 mg PO DAILY [facility] Ascorbic Acid (Ascorbic Acid 500 Mg Tablet) 1,000 mg PO DAILY [facility] Last Admin: 07/18/21 09:46 Dose: 1,000 mg Documented by: Aspirin (Aspirin 81 Mg Chewable Tablet) 81 mg PO DAILY [facility] Last Admin: 07/18/21 09:48 Dose: 81 mg Documented by: Atorvastatin Calcium (Atorvastatin 10 Mg Tab) 10 mg PO DAILY [facility] Last Admin: 07/18/21 09:48 Dose: 10 mg Documented by: Heparin Sodium (Porcine) (Heparin 5000 Unit/Ml 1 Ml Vial) 5,000 unit SQ Q12HR [facility] Last Admin: 07/18/21 09:49 Dose: 5,000 unit Documented by: Heparin Sodium (Porcine) (Heparin 1,000 Unit/Ml Vial) 6,000 unit IV EVERY HD PRN PRN Reason: AFTER EACH Heparin Sodium (Porcine) (Heparin 1,000 Unit/Ml Vial) 1,000 unit IV EVERY HD [facility] Stop: 07/21/21 14:01 Hydralazine HCl (Hydralazine Hcl 25 Mg Tablet) 50 mg PO TID [facility] Last Admin: 07/18/21 09:47 Dose: 50 mg Documented by: Metoprolol Succinate (Metoprolol Xl 50 Mg Tab) 50 mg PO DAILY [facility] Metoprolol Tartrate (Metoprolol Tar 50 Mg Tab) 50 mg PO BID [facility] Last Admin: 07/18/21 09:46 Dose: 50 mg Documented by: Multivitamins/Iron (Fe Sulf/Fa/Vit B Comp & C Tab) 1 tab PO DAILY WITH BREAKFAS T [facility] Last Admin: 07/18/21 09:47 Dose: 1 tab Documented by: Ondansetron HCl (Ondansetron 4 Mg/2 Ml Vial) 4 mg IV Q6HP PRN PRN Reason: NAUSEA / VOMITING Oxymetazoline HCl (Oxymetazoline Hcl 0.05% 15ml) 0 appl KATIE DAILY [facility] Pantoprazole Sodium (Pantoprazole 40mg Tablet) 40 mg PO DAILYAC [facility] Last Admin: 07/18/21 09:47 Dose: 40 mg Documented by: Sodium Chloride (Flush Normal Saline 10 Ml) 10 ml IV BID [facility] Last Admin: 07/18/21 09:00 Dose: 10 ml Documented by: Sodium Chloride (Sodium Chloride 0.9% 10ml Inj) 10 ml IV UD PRN PRN Reason: Diluant Microbiology Results 07/15/21 15:50 Blood - Blood Aerobic Blood Culture - Preliminary No growth in 24 hours. 07/15/21 15:50 Blood - Blood Anaerobic Blood Culture - Preliminary No growth in 24 hours. 07/15/21 15:30 Blood - Blood Aerobic Blood Culture - Preliminary No growth in 24 hours. 07/15/21 15:30 Blood - Blood Anaerobic Blood Culture - Preliminary No growth in 24 hours. Assessment/ Plan: Nephrology No dyspnea No chest pain No acute events overnight Vitals, medications, blood work and imaging reviewed in the chart. NAD. NCAT. MMM. Neck supple. Normal respiratory effort. RRR. Abd ND. No C/C/E. No rash. AAO. Normal speech. 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 Fever, sob, cough, vomiting,nausea COMPARISON: No comparisons TECHNIQUE: A limited noncontrast study was performed. All CT scans are performed using dose optimization technique as appropriate and may include automated exposure control or mA/KV adjustment according to patient size. FINDINGS: Subtle ground-glass opacities are present the right lower lobe.No pleural or pericardial effusion.Small hiatal hernia noted. Mild fluid distention of the esophagus.No intrathoracic adenopathy. Several low-density liver lesions are likely cysts. Bilateral polycystic kidneys noted. The spleen, pancreas, adrenal glands are within normal limits. No bowel obstruction, free air, free fluid or abscess. Normal appendix. Sigmoid diverticulosis coli is present. Prominent stool is present throughout the colon. No pathologic lymphadenopathy in the abdomen or pelvis. Small fat containing umbilical hernia. No worrisome osseous finding. IMPRESSION: Polycystic kidney disease. Subtle groundglass opacity posterior right lower lobe could be mild infiltrate/infection. Prominent sigmoid diverticulosis coli without diverticulitis.
--- NOTE | 2021-07-18 11:35 | EKG ---
Test Date: 2021-07-15 Test Time: 14:42:08 [employer]chool Paraprofessional: CHAD MEASUREMENT RESULTS: Intervals: Rate: 96 NJ: 154 QRSD: 80 QT: 352 QTc: 444 [place]: P: 37 NJ: 154 QRS: 34 T: 37 INTERPRETIVE STATEMENTS: Normal sinus rhythm Normal ECG Compared to ECG 11/04/2013 15:35:55 Sinus bradycardia no longer present Electronically Signed On 07-18-21 11:30:50 [employer] DETECTIVE by Siddhartha Gutierrez
[2021-07-18] MEDS: OXYMETAZOLINE HCL 0.05% 15ML NAS SCH (14:37)
[2021-07-18] MEDS ORDERED: Levofloxacin500mg IV 500 MG/100 ML BAG IV SCH (16:00)
[2021-07-19 05:45] LABS: Hematocrit 25.5 % (39.6-49.0); Lymphocytes % 16.7 % (15.3-44.8); MPV 9.9 fL (7.6-11.3); RBC Red Blood Cell Count 2.71 M/uL (4.33-5.43)
[2021-07-19] MEDS: PANTOPRAZOLE 40MG TABLET PO SCH (05:47)
[2021-07-19 06:19] LABS: Albumin 2.2 g/dL (3.4-5.0); Bilirubin Total 0.6 mg/dL (0.2-1.0); Phosphorus 3.9 mg/dL (2.5-4.9); Potassium 3.9 mmol/L (3.5-5.1); Protein, Total 6.2 g/dL (6.4-8.2); Uric Acid 4.4 mg/dL (3.5-7.2)
[2021-07-19 06:43] LABS: Blood Morphology Comment NOT SEEN (NOT SEEN); Platelet Estimate ADEQ
[2021-07-19] MEDS: HYDRALAZINE HCL 25 MG TABLET PO SCH ×3 (09:00→21:00)
[2021-07-19] MEDS ORDERED: EPOETIN ALFA-EPBX 10,000 UNIT/ML VIAL SQ SCH (09:00)
--- NOTE | 2021-07-19 09:35 | ECHO ---
HEIGHT: 6 ft 0 in WEIGHT: 235 lb 0 oz DATE OF STUDY: 07/18/[address]: Prince Naga Rogers MD 2-DIMENSIONAL: YES M.MODE: YES DOPPLER: YES COLOR FLOW: YES TDS: PORTABLE: DEFINITY: BUBBLE STUDY: DIAGNOSIS: HIGH TROPONIN CARDIAC HISTORY: CATHERIZATION: NO SURGERY: NO PROSTHETIC VALVE: NO PACEMAKER: NO MEASUREMENTS (cm) DIASTOLIC (NORMALS) SYSTOLIC (NORMALS) IVSd 1.0 (0.6-1.2) LA Diam 4.0 (1.9-4.0) LVEF 79% LVIDd 5.4 (3.5-5.7) LVIDs 2.8 (2.0-3.5) %FS 48% LVPWd 1.1 (0.6-1.2) Ao Diam 3.2 (2.0-3.7) 2 DIMENSIONAL ASSESSMENT: RIGHT ATRIUM: NORMAL LEFT ATRIUM: NORMAL RIGHT VENTRICLE: NORMAL LEFT VENTRICLE: NORMAL TRICUSPID VALVE: NORMAL MITRAL VALVE: NORMAL PULMONIC VALVE: NORMAL AORTIC VALVE: NORMAL PERICARDIAL EFFUSION: NONE AORTIC ROOT: NORMAL LEFT VENTRICULAR WALL MOTION: NORMAL DOPPLER/COLOR FLOW: NORMAL COMMENTS: NORMAL LEFT VENTRICULAR SIZE AND FUNCTION. NO EFFUSION. NO WALL MOTION ABNORMALITY. TECHNOLOGIST: KSENIA RIVERA
[2021-07-19] MEDS: VITAMIN D 5,000 UNIT CAP PO SCH (09:49)
[2021-07-19] MEDS: ASCORBIC ACID 500 MG TABLET PO SCH (09:49)
[2021-07-19] MEDS: AMLODIPINE 10 MG TAB PO SCH (09:49)
[2021-07-19] MEDS: CALCITROL 0.25 MCG CAP PO SCH (09:49)
[2021-07-19] MEDS: ASPIRIN 81 MG CHEWABLE TABLET PO SCH (09:49)
[2021-07-19] MEDS: FE SULF/FA/VIT B COMP & C TAB PO SCH (09:50)
[2021-07-19] MEDS: METOPROLOL TAR 50 MG TAB PO SCH ×2 (09:51→21:00)
[2021-07-19] MEDS: HEPARIN 5000 UNIT/ML 1 ML VIAL SQ SCH ×2 (09:51→21:00)
[2021-07-19] MEDS: ATORVASTATIN 10 MG TAB PO SCH (09:51)
[2021-07-19] MEDS: OXYMETAZOLINE HCL 0.05% 15ML NAS SCH (09:52)
[2021-07-19] MEDS: NEPRO SHAKE 237 ML CAN PO SCH ×3 (10:06→21:00)
[2021-07-19 12:13] LABS: Magnesium 1.7
--- NOTE | 2021-07-19 21:51 | P.PN ---
Date of Service: 07/19/21 Vital Signs Temp Pulse Resp BP Pulse Ox 98.1 F 67 18 93/55 L 97 07/19/21 20:00 07/19/21 21:00 07/19/21 20:00 07/19/21 21:00 07/19/21 20:00 Medications Acetaminophen (Acetaminophen 500 Mg Tab) 500 mg PO Q4HP PRN PRN Reason: TEMP > 100' F Last Admin: 07/18/21 16:38 Dose: 500 mg Documented by: Hydrocodone Bitart/Acetaminophen (Hydrocodone/Apap 7.5/325 Mg Tab) 1 tab PO Q6H PRN PRN Reason: Pain scale 5-7 (Moderate) Last Admin: 07/17/21 20:45 Dose: 1 tab Documented by: Amlodipine Besylate (Amlodipine 10 Mg Tab) 10 mg PO DAILY [facility] Last Admin: 07/19/21 09:49 Dose: 10 mg Documented by: Ascorbic Acid (Ascorbic Acid 500 Mg Tablet) 1,000 mg PO DAILY [facility] Last Admin: 07/19/21 09:49 Dose: 1,000 mg Documented by: Aspirin (Aspirin 81 Mg Chewable Tablet) 81 mg PO DAILY [facility] Last Admin: 07/19/21 09:49 Dose: 81 mg Documented by: Atorvastatin Calcium (Atorvastatin 10 Mg Tab) 10 mg PO DAILY [facility] Last Admin: 07/19/21 09:51 Dose: 10 mg Documented by: Calcitriol (Calcitrol 0.25 Mcg Cap) 0.5 mcg PO DAILY [facility] Last Admin: 07/19/21 09:49 Dose: 0.5 mcg Documented by: Cholecalciferol (Vitamin D 5,000 Unit Cap) 5,000 unit PO DAILY [facility] Last Admin: 07/19/21 09:49 Dose: 5,000 unit Documented by: Docusate Sodium (Docusate Na 100 Mg Cap) 100 mg PO BID [facility] Enteral Nutritional Formula (Nepro Shake 237 Ml Can) 237 ml PO TID [facility] Last Admin: 07/19/21 21:00 Dose: 237 ml Documented by: Heparin Sodium (Porcine) (Heparin 5000 Unit/Ml 1 Ml Vial) 5,000 unit SQ Q12HR [facility] Last Admin: 07/19/21 21:00 Dose: 5,000 unit Documented by: Heparin Sodium (Porcine) (Heparin 1,000 Unit/Ml Vial) 6,000 unit IV EVERY HD PRN PRN Reason: AFTER EACH Last Admin: 07/18/21 12:45 Dose: 6,000 unit Documented by: Heparin Sodium (Porcine) (Heparin 1,000 Unit/Ml Vial) 1,000 unit IV EVERY HD [facility] Stop: 07/21/21 14:01 Last Admin: 07/18/21 10:34 Dose: 1,000 unit Documented by: Hydralazine HCl (Hydralazine Hcl 25 Mg Tablet) 50 mg PO TID [facility] Last Admin: 07/19/21 21:00 Dose: Not Given Documented by: Levofloxacin/Dextrose (Levaquin 250mg/50 Ml Ivpb) 250 mg in 50 mls @ 50 mls/hr IV Q48H [facility] Metoprolol Tartrate (Metoprolol Tar 50 Mg Tab) 50 mg PO BID [facility] Last Admin: 07/19/21 21:00 Dose: Not Given Documented by: Multivitamins/Iron (Fe Sulf/Fa/Vit B Comp & C Tab) 1 tab PO DAILY WITH BREAKFAST [facility] Last Admin: 07/19/21 09:50 Dose: 1 tab Documented by: Ondansetron HCl (Ondansetron 4 Mg/2 Ml Vial) 4 mg IV Q6HP PRN PRN Reason: NAUSEA / VOMITING Last Admin: 07/18/21 21:32 Dose: 4 mg Documented by: Oxymetazoline HCl (Oxymetazoline Hcl 0.05% 15ml) 0 appl KATIE DAILY [facility] Last Admin: 07/19/21 09:52 Dose: 1 spr Documented by: Pantoprazole Sodium (Pantoprazole 40mg Tablet) 40 mg PO DAILYAC [facility] Last Admin: 07/19/21 05:47 Dose: 40 mg Documented by: Polyethylene Glycol (Polyethyl Gly 3350 17 Gm/Dose) 17 gm PO DAILY PRN PRN Reason: CONSTIPATION Sodium Chloride (Flush Normal Saline 10 Ml) 10 ml IV BID [facility] Last Admin: 07/19/21 21:00 Dose: 10 ml Documented by: Sodium Chloride (Sodium Chloride 0.9% 10ml Inj) 10 ml IV UD PRN PRN Reason: Diluant Microbiology Results 07/15/21 15:50 Blood - Blood Aerobic Blood Culture - Preliminary No growth in 24 hours. 07/15/21 15:50 Blood - Blood Anaerobic Blood Culture - Preliminary No growth in 24 hours. 07/15/21 15:30 Blood - Blood Aerobic Blood Culture - Preliminary No growth in 24 hours. 07/15/21 15:30 Blood - Blood Anaerobic Blood Culture - Preliminary No growth in 24 hours. Assessment/ Plan: Nephrology No dyspnea No chest pain. +BM No acute events overnight Vitals, medications, blood work and imaging reviewed in the chart. NAD. NCAT. MMM. Neck supple. Normal respiratory effort. RRR. Abd ND. No C/C/E. No rash. AAO. Normal speech. 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 Fever, sob, cough, vomiting,nausea COMPARISON: No comparisons TECHNIQUE: A limited noncontrast study was performed. All CT scans are performed using dose optimization technique as appropriate and may include automated exposure control or mA/KV adjustment according to patient size. FINDINGS: Subtle ground-glass opacities are present the right lower lobe.No pleural or pericardial effusion.Small hiatal hernia noted. Mild fluid distention of the esophagus.No intrathoracic adenopathy. Several low-density liver lesions are likely cysts. Bilateral polycystic kidneys noted. The spleen, pancreas, adrenal glands are within normal limits. No bowel obstruction, free air, free fluid or abscess. Normal appendix. Sigmoid diverticulosis coli is present. Prominent stool is present throughout the colon. No pathologic lymphadenopathy in the abdomen or pelvis. Small fat containing umbilical hernia. No worrisome osseous finding. IMPRESSION: Polycystic kidney disease. Subtle groundglass opacity posterior right lower lobe could be mild infiltrate/infection. Prominent sigmoid diverticulosis coli without diverticulitis.
[2021-07-20 05:54] LABS: Potassium 3.8 mmol/L (3.5-5.1)
[2021-07-20] MEDS: PANTOPRAZOLE 40MG TABLET PO SCH (06:01)
[2021-07-20] MEDS: HYDRALAZINE HCL 25 MG TABLET PO SCH ×3 (09:00→14:39)
[2021-07-20] MEDS ORDERED: DOCUSATE NA 100 MG CAP PO SCH (09:00)
[2021-07-20] MEDS: NEPRO SHAKE 237 ML CAN PO SCH ×2 (09:00→14:40)
[2021-07-20] MEDS: AMLODIPINE 10 MG TAB PO SCH (09:00)
[2021-07-20] MEDS: METOPROLOL TAR 50 MG TAB PO SCH (09:00)
[2021-07-20] MEDS: OXYMETAZOLINE HCL 0.05% 15ML NAS SCH (09:00)
--- NOTE | 2021-07-20 10:01 | P.PN ---
Date of Service: 07/20/21 Vital Signs Temp Pulse Resp BP Pulse Ox 97.8 F 72 20 115/65 97 07/20/21 08:00 07/20/21 08:00 07/20/21 08:00 07/20/21 08:00 07/20/21 08:00 Medications Acetaminophen (Acetaminophen 500 Mg Tab) 500 mg PO Q4HP PRN PRN Reason: TEMP > 100' F Last Admin: 07/18/21 16:38 Dose: 500 mg Documented by: Hydrocodone Bitart/Acetaminophen (Hydrocodone/Apap 7.5/325 Mg Tab) 1 tab PO Q6H PRN PRN Reason: Pain scale 5-7 (Moderate) Last Admin: 07/17/21 20:45 Dose: 1 tab Documented by: Amlodipine Besylate (Amlodipine 10 Mg Tab) 10 mg PO DAILY [facility] Last Admin: 07/19/21 09:49 Dose: 10 mg Documented by: Ascorbic Acid (Ascorbic Acid 500 Mg Tablet) 1,000 mg PO DAILY [facility] Last Admin: 07/19/21 09:49 Dose: 1,000 mg Documented by: Aspirin (Aspirin 81 Mg Chewable Tablet) 81 mg PO DAILY [facility] Last Admin: 07/19/21 09:49 Dose: 81 mg Documented by: Atorvastatin Calcium (Atorvastatin 10 Mg Tab) 10 mg PO DAILY [facility] Last Admin: 07/19/21 09:51 Dose: 10 mg Documented by: Calcitriol (Calcitrol 0.25 Mcg Cap) 0.5 mcg PO DAILY [facility] Last Admin: 07/19/21 09:49 Dose: 0.5 mcg Documented by: Cholecalciferol (Vitamin D 5,000 Unit Cap) 5,000 unit PO DAILY [facility] Last Admin: 07/19/21 09:49 Dose: 5,000 unit Documented by: Docusate Sodium (Docusate Na 100 Mg Cap) 100 mg PO BID [facility] Enteral Nutritional Formula (Nepro Shake 237 Ml Can) 237 ml PO TID [facility] Last Admin: 07/19/21 21:00 Dose: 237 ml Documented by: Epoetin Philippe (Epoetin 4,000 Unit/Ml Vial) 10,000 unit SQ M,W,F [facility] Heparin Sodium (Porcine) (Heparin 5000 Unit/Ml 1 Ml Vial) 5,000 unit SQ Q12HR [facility] Last Admin: 07/19/21 21:00 Dose: 5,000 unit Documented by: Heparin Sodium (Porcine) (Heparin 1,000 Unit/Ml Vial) 6,000 unit IV EVERY HD PRN PRN Reason: AFTER EACH Last Admin: 07/18/21 12:45 Dose: 6,000 unit Documented by: Heparin Sodium (Porcine) (Heparin 1,000 Unit/Ml Vial) 1,000 unit IV EVERY HD [facility] Stop: 07/21/21 14:01 Last Admin: 07/18/21 10:34 Dose: 1,000 unit Documented by: Hydralazine HCl (Hydralazine Hcl 25 Mg Tablet) 50 mg PO TID [facility] Last Admin: 07/19/21 21:00 Dose: Not Given Documented by: Levofloxacin/Dextrose (Levaquin 250mg/50 Ml Ivpb) 250 mg in 50 mls @ 50 mls/hr IV Q48H [facility] Metoprolol Tartrate (Metoprolol Tar 50 Mg Tab) 50 mg PO BID [facility] Last Admin: 07/19/21 21:00 Dose: Not Given Documented by: Multivitamins/Iron (Fe Sulf/Fa/Vit B Comp & C Tab) 1 tab PO DAILY WITH BREAKFAST [facility] Last Admin: 07/19/21 09:50 Dose: 1 tab Documented by: Ondansetron HCl (Ondansetron 4 Mg/2 Ml Vial) 4 mg IV Q6HP PRN PRN Reason: NAUSEA / VOMITING Last Admin: 07/18/21 21:32 Dose: 4 mg Documented by: Oxymetazoline HCl (Oxymetazoline Hcl 0.05% 15ml) 0 appl KATIE DAILY [facility] Last Admin: 07/19/21 09:52 Dose: 1 spr Documented by: Pantoprazole Sodium (Pantoprazole 40mg Tablet) 40 mg PO DAILYAC [facility] Last Admin: 07/20/21 06:01 Dose: 40 mg Documented by: Polyethylene Glycol (Polyethyl Gly 3350 17 Gm/Dose) 17 gm PO DAILY PRN PRN Reason: CONSTIPATION Sodium Chloride (Flush Normal Saline 10 Ml) 10 ml IV BID [facility] Last Admin: 07/19/21 21:00 Dose: 10 ml Documented by: Sodium Chloride (Sodium Chloride 0.9% 10ml Inj) 10 ml IV UD PRN PRN Reason: Diluant Microbiology Results 07/15/21 15:50 Blood - Blood Aerobic Blood Culture - Preliminary No growth in 24 hours. 07/15/21 15:50 Blood - Blood Anaerobic Blood Culture - Preliminary No growth in 24 hours. 07/15/21 15:30 Blood - Blood Aerobic Blood Culture - Preliminary No growth in 24 hours. 07/15/21 15:30 Blood - Blood Anaerobic Blood Culture - Preliminary No growth in 24 hours. Assessment/ Plan: Nephrology No dyspnea No chest pain. +BM yesterday No acute events overnight Vitals, medications, blood work and imaging reviewed in the chart. NAD. NCAT. MMM. Neck supple. Normal respiratory effort. RRR. Abd ND. No C/C/E. No rash. AAO. Normal speech. 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 Seen and examined on HD. -HBV pending -Arrange placement [facility] Acidosis -Acute HD HTN with CKD -Continue Amlodipine -Continue Metoprolol Moderate malnutrition -Encourage nutrition Anemia in chronic illness/ CKD -Monitor H&H -Retacrit TIW CKD MBD -Continue Vitamin D Constipation -Continue Colace -Miralax prn Case reviewed with Dr. Cervantes EXAM DESCRIPTION: CT - Chest Abd Pelvis Wo Con - 07/15/2021 7:45 pm CLINICAL HISTORY: Chest and abdomen pain. Fever, sob, cough, vomiting,nausea COMPARISON: No comparisons TECHNIQUE: A limited noncontrast study was performed. All CT scans are performed using dose optimization technique as appropriate and may include automated exposure control or mA/KV adjustment according to patient size. FINDINGS: Subtle ground-glass opacities are present the right lower lobe.No pleural or pericardial effusion.Small hiatal hernia noted. Mild fluid distention of the esophagus.No intrathoracic adenopathy. Several low-density liver lesions are likely cysts. Bilateral polycystic kidneys noted. The spleen, pancreas, adrenal glands are within normal limits. No bowel obstruction, free air, free fluid or abscess. Normal appendix. Sigmoid diverticulosis coli is present. Prominent stool is present throughout the colon. No pathologic lymphadenopathy in the abdomen or pelvis. Small fat containing umbilical hernia. No worrisome osseous finding. IMPRESSION: Polycystic kidney disease. Subtle groundglass opacity posterior right lower lobe could be mild infiltrate/infection. Prominent sigmoid diverticulosis coli without diverticulitis.
[2021-07-20] MEDS: HEPARIN 5000 UNIT/ML 1 ML VIAL SQ SCH (10:58)
[2021-07-20] MEDS: ASPIRIN 81 MG CHEWABLE TABLET PO SCH (11:01)
[2021-07-20] MEDS: CALCITROL 0.25 MCG CAP PO SCH (11:01)
[2021-07-20] MEDS: ASCORBIC ACID 500 MG TABLET PO SCH (11:02)
[2021-07-20] MEDS: ATORVASTATIN 10 MG TAB PO SCH (11:02)
[2021-07-20] MEDS: FE SULF/FA/VIT B COMP & C TAB PO SCH (11:03)
[2021-07-20] MEDS: VITAMIN D 5,000 UNIT CAP PO SCH (11:04)
--- NOTE | 2021-07-20 11:21 | P.PN ---
Subjective Date of Service: 07/18/21 Patient clinically doing well. Review of Systems 10-point ROS is otherwise unremarkable Physical Examination - Vital Signs Temperature: 97.8 F Blood Pressure: 115/65 Pulse: 72 Respirations: 20 Pulse Ox (%): 97 - Physical Exam General: Alert, In no apparent distress, Oriented x3 HEENT: Atraumatic, PERRLA, EOMI Neck: Supple, JVD not distended Respiratory: Clear to auscultation bilaterally, Normal air movement Cardiovascular: Regular rate/rhythm, Normal S1 S2 Gastrointestinal: Normal bowel sounds, No tenderness Musculoskeletal: No tenderness Integumentary: No rashes Neurological: Normal speech, Normal tone, Normal affect Lymphatics: No axilla or inguinal lymphadenopathy - Studies Medications List Reviewed: Yes Assessment & Plan - Problems (Diagnosis) (1) CKD (chronic kidney disease), stage V Current Visit: Yes Status: Acute (2) Gastroenteritis Current Visit: Yes Status: Acute (3) Type 2 myocardial infarction Current Visit: Yes Status: Acute - Advance Directives Does patient have a Living Will: Yes Does patient have a Durable POA for Healthcare: Yes
[2021-07-20 14:39] LABS: HBsAG Nonreactive (Nonreactive)
[2021-07-20] MEDS ORDERED: Levofloxacin 250mg IV 250 MG/50 ML BAG IV SCH (16:00)
[2021-07-20] MEDS ORDERED: EPOETIN 4,000 UNIT/ML VIAL SQ SCH (17:00)
[2021-07-20 17:37] VITALS: BP 127/71; TEMP 97.7
[2021-07-20 20:58] VITALS: O2SAT 92
== END 2021-07-20 20:45 | disposition home or self-care (01) | DRG 391 ==
LOC: ER 14:20 → ERHOLD 20:17 → 2ND 07-16 14:08
PROVIDERS: ADMIT Internal Medicine; ATTEND Hospitalist
PROC: 02HV33Z Insertion of Infusion Device into Superior Vena Cava, Percutaneous Approach (ICD-10-PCS; 2021-07-17)
PROC: 5A1D70Z Performance of Urinary Filtration, Intermittent, Less than 6 Hours Per Day (ICD-10-PCS; 2021-07-17)
PROC: 0JH63XZ Insertion of Tunneled Vascular Access Device into Chest Subcutaneous Tissue and Fascia, Percutaneous Approach (ICD-10-PCS; principal; 2021-07-17 09:00)
DX: A08.4 Viral intestinal infection, unspecified (principal); J12.9 Viral pneumonia, unspecified; N18.6 End stage renal disease; I21.A1 Myocardial infarction type 2; Q61.3 Polycystic kidney, unspecified; I12.0 Hypertensive chronic kidney disease with stage 5 chronic kidney disease or end stage renal disease; E87.2 Acidosis; N17.9 Acute kidney failure, unspecified; E44.0 Moderate protein-calorie malnutrition; D63.8 Anemia in other chronic diseases classified elsewhere; K59.00 Constipation, unspecified; K21.9 Gastro-esophageal reflux disease without esophagitis; D63.1 Anemia in chronic kidney disease; M89.9 Disorder of bone, unspecified; E78.5 Hyperlipidemia, unspecified; Z79.899 Other long term (current) drug therapy; Z68.31 Body mass index [BMI] 31.0-31.9, adult; Z20.822 Contact with and (suspected) exposure to COVID-19
CPT/HCPCS: 0240U; 36415; 71045; 71250; 74176; 80048; 80053; 80061; 80076; 81003; 81015; 82150; 82550; 82553; 83605; 83690; 83735; 84100; 84145; 84439; 84443; 84484; 84550; 85025; 85610; 85730; 86704; 86706; 86803; 87040; 87340; 90935; 93005; 93306; 94010; 99285; C1752; C9113; J0690; J1644; J2704; J7040; Q5105; Q5106

== ENCOUNTER 2023-06-28 10:48 | Day surgery (SDC) | payer OTHER ==
[2023-06-28] MEDS ORDERED: NA CHLORIDE 0.9% 1,000 ML ONE (11:03)
[2023-06-28] MEDS ORDERED: CEFAZOLIN SODIUM 2 GM/VIAL ONE (11:03)
[2023-06-28 11:40] LABS: Potassium 3.9 mEq/L (3.5-5.1)
[2023-06-28] MEDS ORDERED: MIDAZOLAM HCL 2 MG/2 ML INJ ONE (12:13)
[2023-06-28] MEDS ORDERED: LIDOCAINE 1% MPF 5 ML VIAL ONE (12:13)
[2023-06-28] MEDS ORDERED: ROCURONIUM 50 MG/5 ML VIAL IV ONE (12:13)
[2023-06-28] MEDS ORDERED: propofoL 200 MG/20 ML VIAL IV ONE (12:13)
[2023-06-28] MEDS ORDERED: FENTANYL CITR 100 MCG/2 ML ONE ×2 (12:13→14:31)
[2023-06-28] MEDS ORDERED: BUPIVACAINE 0.25% PF 30 ML VIAL ONE (12:28)
[2023-06-28] MEDS ORDERED: HEPARIN 500 UNIT/5 ML SYR IV ONE (12:39)
[2023-06-28] MEDS ORDERED: ONDANSETRON 4 MG/2 ML VIAL ONE (13:09)
[2023-06-28] MEDS ORDERED: dexAMETHasone 10 MG/ML VIAL ONE (13:09)
[2023-06-28] MEDS ORDERED: EPHEDRINE SULF 50 MG/ML VIAL ONE (13:10)
[2023-06-28] MEDS ORDERED: GLYCOPYRROLATE 0.2 MG/ML SYR ONE ×3 (14:09)
[2023-06-28] MEDS ORDERED: NEOSTIGMINE 1 MG/ML -10 ML VIAL ONE (14:09)
--- NOTE | 2023-06-28 14:14 | P.OP ---
Preoperative diagnosis: Peritoneal Dialysis Catheter Dysfunction Postoperative diagnosis: Peritoneal Dialysis Catheter Dysfunction Primary procedure: Diagnostic Laparoscopy Secondary procedure: Revision of Peritoneal Dialysis Catheter Anesthesia: GETA + Local Estimated blood loss: <1cc Specimen: None Findings: Adhesions from small bowel to PD catheter Complications: None Transferred to: Recovery Room Condition: Good
[2023-06-28 14:49] VITALS: TEMP 97
--- NOTE | 2023-06-28 15:02 | OP ---
Date of Procedure: 06/28/2023 Surgeon: Braxton Martin MD, Preoperative Diagnosis: Peritoneal dialysis catheter dysfunction. Postoperative Diagnosis: Peritoneal dialysis catheter dysfunction. Procedures Performed: 1.Diagnostic laparoscopy. 2.Revision of peritoneal dialysis catheter. Anesthesia: General endotracheal plus local with 0.25% Marcaine. Estimated Blood Loss: 1 cc. Specimen: None. Findings: Adhesions from the small bowel to the PD catheter were noted and the PD catheter was not i n the optimal position. Complications: None. Disposition: Patient transferred to recovery room in good condition. Procedure In Detail: After informed consent was obtained, patient was brought to the operating room, prepped and draped in the usual sterile fashion after adequate anesthesia was achieved. I anestheti zed an area of the left upper quadrant down to subcutaneous tissues and I entered the peritoneal cavi ty using optical trocar without incident or complication. Insufflation was obtained to 15 mmHg, at t his time. There was no injury to vital structures upon entry into the abdomen. Findings at this west e included a previously placed hernia mesh which was visible, a palpable hernia defect near midline a nd visible with the laparoscopy. In addition, the peritoneal dialysis catheter appeared buried in sm all bowel in the lower abdomen, upper pelvic area but was not in the appropriate position. There was a suture which appeared to be previously placed just to the left of midline where the catheter appar ently had been secured to the anterior abdominal wall on previous operation. At this point, I placed 2 additional trocars, 1 in the left mid abdomen, 1 in the left lower quadrant. Both of these were s imilarly anesthetized, sharply incised and 5 mm trocars placed under direct visualization without inc ident or complication. The left mid abdominal trocar was upsized to an 8 mm under direct visualizati on without incident or complication. I then grasped the catheter, pulled it out from the adhesions o f small bowel, gently retracting without any evidence of injury to small bowel, at this point. After the catheter was released, it was placed back in the normal anatomic position from the previous secu red abdominal wall position and placed it down at near the space of Retzius slightly above that area, so it was not deep in the pelvis, but rather sat anterior in the pelvis. At this point, I pulled th e catheter back through the previously placed suture and found that there was laxity due to bowing of the catheter as it came in the abdominal wall causing a redundancy and tension on the catheter pulli ng it back upward because of the bowing of the tube due to gravity and the position of the catheter a s it entered the abdomen. As such, I opted to place an additional suture near the entry site, which was a 2-0 PDS suture, secured using an intracorporeal suture, at this point. This was secured theref ore taking the laxity out of the catheter and it sat in a perfect position in the pelvis after this w as positioned. Therefore, the 2 sutures held the catheter in an optimal position to the anterior abd ominal wall just to the left of midline. I then rolled some of the preperitoneal fat over the top of this to help bury the catheter at this point away from intestinal contents as much as possible. At this point, the patient was positioned in multiple positions and the catheter appeared to be holding in the appropriate position. Under desufflation, I checked, and under reinsufflation, I checked, and once again it stayed in good position. At this point, I packed the catheter with heparin and opted to complete the procedure at this time. I therefore removed the 8 mm trocar and closed this trocar s ite using a Alpesh-Tree suture passer with an 0 Vicryl interrupted fashion with good approximatio n of tissues. I then desufflated the abdomen under direct visualization without incident or complica tion. Remainder of trocars were removed. All skin incisions were then copiously irrigated and close d with a 4-0 Monocryl in a running fashion. Dermabond was placed over top. The patient tolerated th e procedure without incident or complication, was transferred to PACU in good condition. All counts we re correct at the end of the case. TK/MODL Voice ID: [id number] Report ID: [id number]
[2023-06-28 15:15] VITALS: BP 112/65; O2SAT 96
== END 2023-06-28 15:57 | disposition home or self-care (01) ==
LOC: OR 10:48
PROVIDERS: ATTEND Surgery
PROC: 0WWG43Z Revision of Infusion Device in Peritoneal Cavity, Percutaneous Endoscopic Approach (ICD-10-PCS; principal; 2023-06-28 12:45)
DX: T85.691A Other mechanical complication of intraperitoneal dialysis catheter, initial encounter (principal); Z45.2 Encounter for adjustment and management of vascular access device
CPT/HCPCS: 36415; 80048; 93005; J1100; J1642; J2001; J2250; J2405; J2704; J2710; J3010; J7030

== ENCOUNTER 2024-03-31 12:13 | Emergency (ER) | payer OTHER ==
[2024-03-31] MEDS ORDERED: HYDROCODONE/APAP 10/325 TAB ONE (13:15)
--- NOTE | 2024-03-31 13:51 | RAD REPORT ---
Exam:Knee Left 3 View HISTORY: Left knee pain FINDINGS: Small joint effusion. Cortical irregularity lateral tibial plateau is suspicious for a subtle fracture. CT could be obtaine d for further evaluation No dislocation
[2024-03-31] MEDS ORDERED: MORPHINE 4 MG/ML SYR ONE (14:14)
--- NOTE | 2024-03-31 14:40 | RAD REPORT ---
EXAM: CT left knee without contrast CLINICAL INDICATION: Knee pain TECHNIQUE: CT of the left knee was performed without contrast. Axial, sagittal, and coronal reconstru cted images. This exam was performed according to our departmental dose-optimization program, which includes automated exposure control, adjustment of the mA and/or kV according to patient size and/or use of iterative reconstruction technique. COMPARISON: X-ray same date FINDINGS: Lateral tibial plateau fracture is mildly depressed. It extends medially involving the tibial spines. It also involves the lateral aspect of the medial tibial plateau in which it is minimally displaced. No dislocation Small hemarthrosis IMPRESSION: Tibial fracture
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
[2024-03-31 17:53] VITALS: BP 121/71; TEMP 97.2; O2SAT 100
== END 2024-03-31 15:42 | disposition home or self-care (01) ==
LOC: ER 12:13
DX: S82.142A Displaced bicondylar fracture of left tibia, initial encounter for closed fracture (principal)
CPT/HCPCS: 73700; 96372; 99284